=== PATIENT | female | born 1975 | race Caucasian/White ===

== ENCOUNTER 2019-04-03 10:20 | Outpatient (CLI) | payer OTHER | END 2019-04-03 11:00 | disposition home or self-care (01) | LOC: MAMO-SONO 10:20 | DX: Z12.31 Encounter for screening mammogram for malignant neoplasm of breast (principal); Z87.898 Personal history of other specified conditions; N64.4 Mastodynia ==

== ENCOUNTER 2019-04-03 12:04 | Outpatient (CLI) | payer OTHER | END 2019-04-03 12:27 | disposition home or self-care (01) | LOC: NUCLEAR 12:04 | DX: M81.0 Age-related osteoporosis without current pathological fracture (principal); Z12.31 Encounter for screening mammogram for malignant neoplasm of breast; N64.4 Mastodynia ==

== ENCOUNTER 2022-01-28 11:50 | Outpatient (CLI) | payer OTHER | END 2022-01-28 12:00 | disposition home or self-care (01) | LOC: PPH VACUNA 11:50 | PROVIDERS: ATTEND Emergency Medicine Pediatric Emergency Medicine | DX: Z23 Encounter for immunization (principal) ==

== ENCOUNTER 2022-01-28 11:51 | Outpatient (CLI) | payer OTHER | END 2022-01-28 12:00 | disposition home or self-care (01) | LOC: PPH VACUNA 11:51 | PROVIDERS: ATTEND Emergency Medicine Pediatric Emergency Medicine | DX: Z23 Encounter for immunization (principal) ==

== ENCOUNTER 2022-09-28 15:16 | Outpatient (CLI) | payer OTHER | END 2022-09-28 16:08 | disposition home or self-care (01) | LOC: SONOGRAMA 15:16 | PROVIDERS: ATTEND General Practice | DX: N20.0 Calculus of kidney (principal); R31.9 Hematuria, unspecified; N39.0 Urinary tract infection, site not specified ==